=== PATIENT | male | born 1975 | race Two or more races ===

== ENCOUNTER 2019-06-19 11:22 | Inpatient (IN) | payer OTHER ==
[~2019-06-19] VITALS: Ht 167.6 cm; Wt 102.0 kg
--- NOTE | 2019-06-19 11:54 | NUR ---
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 ARTI
--- NOTE | 2019-06-19 12:04 | NUR ---
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 SEE FULL NIH FSBS CHECKED: 98 PROVIDER TO BEDSIDE. sYMPTOMS STARTED 06/15 AT 8PM
--- NOTE | 2019-06-19 12:20 | NUR ---
TO CT SCAN
[2019-06-19] MEDS ORDERED: LABETALOL 5MG/ML, 20ML IVPush ONE (12:30)
[2019-06-19] MEDS ORDERED: SODIUM CHLORIDE FLUSH 10ML SYR IVF ONE (12:30)
[2019-06-19] MEDS ORDERED: LABETALOL 5MG/ML, 20ML ONE (12:48)
[2019-06-19] MEDS ORDERED: ATOR-2 PO (12:52)
[2019-06-19] MEDS ORDERED: ATEN25TA PO (12:52)
--- NOTE | 2019-06-19 12:52 | NUR ---
B/P IMPROVED TO 176/87 (PRE-MEDICATION). PROVIDER MADE AWARE. TO DEFER MEDICATION
[2019-06-19 12:53] LABS: BASOPHILS # (AUTO) 0.04 x10^3/uL (0-0.1); BASOPHILS % (AUTO) 1 % (0-1); EOSINOPHILS # (AUTO) 0.11 x10^3/uL (0-0.4); EOSINOPHILS % (AUTO) 1 % (1-7); LYMPHOCYTES # (AUTO) 2.58 x10^3/uL (1-3.4); LYMPHOCYTES % (AUTO) 30 % (22-44); MD NO; MEAN CORPUSCULAR HEMOGLOBIN 29.4 pg (27.5-34.5); MEAN CORPUSCULAR HGB CONC 33.9 g/dL (33.2-36.2); MEAN CORPUSCULAR VOLUME 86.7 fL (81-97); MEAN PLATELET VOLUME 7.4 fL (7.4-10.4); MONOCYTES # (AUTO) 0.59 x10^3/uL (0.2-0.8); MONOCYTES % (AUTO) 7 % (2-9); NEUTROPHILS # (AUTO) 5.21 x10^3/uL (1.8-6.8); NEUTROPHILS % (AUTO) 61 % (42-75); PLATELET COUNT 284 x10^3/uL (130-400); RED BLOOD COUNT 5.85 x10^6/uL (4.38-5.82); RED CELL DISTRIBUTION WIDTH 13.7 % (9.4-14.8)
--- NOTE | 2019-06-19 12:54 | NUR ---
VRI/FAMILY UTILIZED FOR [place] INTERPRETATION
[2019-06-19 13:02] LABS: INTERNATIONAL NORMALIZED RATIO 1.01 (0.93-1.1); PROTHROMBIN TIME 10.7 Seconds (9.6-11.5)
[2019-06-19 13:06] LABS: ALBUMIN 3.9 g/dL (3.4-5.0); ANION GAP 6 mmol/L (5-15); CALCIUM 8.9 mg/dL (8.5-10.1); CHLORIDE 105 mmol/L (98-107); CREATININE 0.81 mg/dL (0.7-1.3)
[2019-06-19 13:09] LABS: TROPONIN I < 0.015 ng/mL (0.000-0.045)
[2019-06-19] MEDS ORDERED: ASPIRIN 81 MG TABLET CHEW PO ONE (13:30)
[2019-06-19] MEDS ORDERED: ASPIRIN 81 MG TABLET CHEW ONE (13:38)
--- NOTE | 2019-06-19 13:42 | NUR ---
Reports dysarthria and facial numbness improved at this time-provider made aware bp remain improved from triage numbers: 170/88 Medicated per emar
--- NOTE | 2019-06-19 13:49 | NUR ---
REPORT FROM EUGENIO SAUNDERS. PT SITTING UP IN [facility], AWAKE/ALERT. ERP AT BEDSIDE.
--- NOTE | 2019-06-19 14:02 | NUR ---
REPORT TO EMILY BECKER
--- NOTE | 2019-06-19 14:25 | NUR ---
PT SITTING UP IN [facility] NOTED. SPEAKING WITH EASE TO DAUGHTER. SPEECH CLEAR. PT DENIES NUMBNESS/TINGLING OR WEAKNESS AT THIS TIME "ITS GONE".
[2019-06-19] MEDS ORDERED: SODIUM CHLORIDE FLUSH 10ML SYR IVF PRN (14:30)
--- NOTE | 2019-06-19 14:30 | NUR ---
HR 58-61, NSR. IMPROVEMENT IN BP DOCUMENTED FROM TRIAGE BP. PER ERP, CONTINUE TO HOLD ORDERED BETA CONNOR
--- NOTE | 2019-06-19 14:44 | NUR ---
REPORT TO EUGENIO COX. PT PREPARED FOR TRANSPORT
[2019-06-19 15:27] VITALS: BP 171/114
[2019-06-19] MEDS ORDERED: HYDROcodone/APAP 5/325 TABLET PO PRN (15:30)
[2019-06-19] MEDS ORDERED: ONDANSETRON 2MG/ML, 2ML IVPush PRN (15:30)
[2019-06-19] MEDS ORDERED: LABETALOL 5MG/ML, 20ML IV PRN (15:30)
[2019-06-19] MEDS ORDERED: morphine SULFATE 10 MG/ML, 1ML IVPush PRN (15:30)
[2019-06-19] MEDS ORDERED: ONDANSETRON 4 MG TABLET PO PRN (15:30)
[2019-06-19] MEDS ORDERED: ACETAMINOPHEN 650 MG/20.3 ML UDC PO PRN (15:30)
[2019-06-19] MEDS ORDERED: ATOR40TA78 PO (16:07)
[2019-06-19] MEDS ORDERED: ATEN1TAB39 PO (16:07)
[2019-06-19] MEDS: POTASSIUM CHLORIDE 20 MEQ in SODIUM CHLORIDE 0.9% 1,000 ML IV SCH (17:07)
[2019-06-19 17:30] VITALS: BP 204/98
[2019-06-19 17:36] VITALS: BP 204/98
[2019-06-19 20:00] VITALS: BP 160/88
[2019-06-19] MEDS: CLOPIDOGREL 75 MG TABLET PO SCH (20:02)
[2019-06-19] MEDS: ATORVASTATIN 80 MG TABLET PO SCH (20:02)
[2019-06-19 20:06] VITALS: BP 160/88
[2019-06-20 01:50] VITALS: BP 162/93
[2019-06-20] MEDS: POTASSIUM CHLORIDE 20 MEQ in SODIUM CHLORIDE 0.9% 1,000 ML IV SCH ×2 (04:56→11:34)
[2019-06-20 06:32] LABS: CHOL/HDL RATIO 5.3; LDL/HDL RATIO 3.5 (0.5-3.0)
[2019-06-20] MEDS: ASPIRIN 81 MG TABLET CHEW PO/NG SCH (08:15)
[2019-06-20] MEDS: CLOPIDOGREL 75 MG TABLET PO SCH (08:15)
[2019-06-20 08:34] VITALS: BP 154/92
[2019-06-20] MEDS ORDERED: OMNIPAQUE 350 MG/ML, 75ML BOTTLE ONE (12:32)
[2019-06-20 15:00] VITALS: BP 168/97
[2019-06-20 20:00] VITALS: BP 163/94
[2019-06-20] MEDS: ATORVASTATIN 80 MG TABLET PO SCH (21:31)
[2019-06-21 01:01] VITALS: BP 164/105
[2019-06-21 05:48] LABS: ALBUMIN 3.5 g/dL (3.4-5.0); ANION GAP 6 mmol/L (5-15); CALCIUM 8.9 mg/dL (8.5-10.1); CHLORIDE 109 mmol/L (98-107)
[2019-06-21 05:52] LABS: ALANINE AMINOTRANSFERASE 46 U/L (12-78); ALKALINE PHOSPHATASE 94 U/L (45-117); BILIRUBIN,TOTAL 0.6 mg/dL (0.2-1.0); TOTAL PROTEIN 7.3 g/dL (6.4-8.2)
[2019-06-21 07:10] VITALS: BP 182/95
[2019-06-21] MEDS ORDERED: AMLODIPINE 10 MG TAB PO SCH (09:00)
[2019-06-21] MEDS ORDERED: CHLORTHALIDONE 25 MG TABLET PO SCH (09:00)
[2019-06-21] MEDS: ASPIRIN 81 MG TABLET CHEW PO/NG SCH (09:20)
[2019-06-21] MEDS: CLOPIDOGREL 75 MG TABLET PO SCH (09:20)
[2019-06-21 13:16] VITALS: BP 157/95
[2019-06-21] MEDS ORDERED: ASPI-515 PO/NG (13:45)
[2019-06-21] MEDS ORDERED: CLOP75TA PO (13:45)
[2019-06-21] MEDS ORDERED: ATOR-2 PO (13:45)
[2019-06-21] MEDS ORDERED: CHLO25TA PO (13:45)
[2019-06-21] MEDS ORDERED: AMLO10TA8 PO (13:45)
[2019-06-21] MEDS ORDERED: CLON0.1T22 PO (13:47)
[2019-06-21] MEDS ORDERED: ASPI-515 PO (13:54)
== END 2019-06-21 15:15 | disposition home or self-care (01) | DRG 63 ==
LOC: ED 14:09 → EDIP 14:23 → 4WST 15:09
PROVIDERS: ADMIT Hospitalist; ATTEND Internal Medicine
DX: I63.9 Cerebral infarction, unspecified (principal); E78.5 Hyperlipidemia, unspecified; I10 Essential (primary) hypertension; E66.9 Obesity, unspecified; E78.00 Pure hypercholesterolemia, unspecified; F80.81 Childhood onset fluency disorder; R13.11 Dysphagia, oral phase; R29.810 Facial weakness; Z79.02 Long term (current) use of antithrombotics/antiplatelets; Z79.82 Long term (current) use of aspirin; Z80.49 Family history of malignant neoplasm of other genital organs; Z81.1 Family history of alcohol abuse and dependence; Z91.14 Patient's other noncompliance with medication regimen
CPT/HCPCS: 36415; 70450; 70496; 70551; 71045; 80048; 80053; 80061; 82040; 82962; 84484; 85025; 85610; 93005; 93306; 93880; 99285; G0378; J3480; Q9967; 92523-GN; J7030